=== PATIENT | male | born 1955 | race Asian ===

== ENCOUNTER 2018-05-22 07:57 | Outpatient (CLI) | payer BC ==
--- NOTE | 2018-05-22 09:40 | ULT ---
HEPATIC ULTRASOUND WITH DOPPLER: FINDINGS: The liver demonstrates heterogeneous echotexture. There are two cysts in the left lobe, measuring 3. 5 and 2.5 cm, respectively. A couple of 2 cm cysts are also seen in the right lobe. No intrahepatic ductal dilatation is seen. No definite solid hepatic mass is noted. The spleen is enlarged, measur ing 14.2 cm in length. The patient is post cholecystectomy. The common duct measures 3 mm in diamet er. The visualized portions of the pancreas are unremarkable. No free fluid is seen in the right up per quadrant. There is normal flow and spectral waveforms in the hepatic, portal, and splenic vascul ature. IMPRESSION: 1. Hepatic cysts and heterogeneous echogenicity of the liver, likely due to fatty infiltration. 2. Status post cholecystectomy. POS: [facility]
== END 2018-05-22 07:58 | disposition home or self-care (01) ==
LOC: SCSULT 07:57
PROVIDERS: ATTEND Internal Medicine Gastroenterology
DX: D50.9 Iron deficiency anemia, unspecified (principal); B18.1 Chronic viral hepatitis B without delta-agent; K76.89 Other specified diseases of liver; Z85.038 Personal history of other malignant neoplasm of large intestine; Z90.49 Acquired absence of other specified parts of digestive tract
CPT/HCPCS: 76705

== ENCOUNTER 2018-07-10 13:00 | Outpatient (CLI) | payer BC ==
--- NOTE | 2018-07-10 16:02 | CT ---
CHEST CT WITH CONTRAST ABDOMEN CT WITH CONTRAST PELVIC CT WITH CONTRAST 07/10/18 HISTORY: Colon cancer. Partial colectomy. Chemotherapy x 6 months. Rising CEA. COMPARISON: None. TECHNIQUE: CT chest, abdomen and pelvic CT performed with IV contrast. Enteric contrast is administered. Coronal reformatted images are submitted for interpretation. FINDINGS: CHEST CT: No axillary lymphadenopathy. Right sided Mediport catheter is noted. No mediastinal mass, lymphadenopathy or hematoma. Heart size is normal. No pericardial effusion. The thoracic and abdominal aorta has normal caliber. No periaortic fat stranding. Dependent atelectatic changes in the lung parenchyma. No masses or consolidation. NO pleural effusion or pneumothorax. Trachea and central bronchi are patent. CT ABDOMEN: Multiple hypodensities in the liver. The majority of these hypodensities are too small to characteriz e. Largest hypodensities in the left hepatic lobe have attenuation coefficient of cysts. The largest cyst in the left hepatic lobe measures 2.5 x 3.0 cm. Largest hypodense lesion in the right hepatic lo be also has attenuation coefficient compatible with a cyst and measures 2.3 x 2.3 cm. No enhancing ma sses in the liver. Spleen, pancreas and adrenal glands are appropriate in terms of their enhancement. There is a small h ypodensity adjacent to the posterior margin of the spleen, too small to further characterize and pres ent a small focus of loculated complex perisplenic fluid versus possible sequela of remote splenic in juries with a capsular chronic hematoma. This hypodensity measures 2.4 x 0.8 cm and has an attenuati on coefficient of 26 Hounsfield units. The pancreas, adrenal glands and kidneys have appropriate enha ncement. Bilaterally, no obstructive uropathy. No gastrohepatic, retrocrural or periportal lymphadenopathy. Portal vein is patent. Gallbladder is askew rgically absent. Gastric mucosa, duodenum, and multiple normal caliber small bowel loops. Right hemic olectomy is noted. The anastomosis of the residual colon and small bowel is unremarkable. There is co ntrast and fecal material opacifying a normal caliber colon. No evidence of colonic mass or obstructi on. CT PELVIS: No mass, lymphadenopathy, free air or free fluid. IMPRESSION: 1. No CT evidence of recurrent or residual colonic neoplasm. 2. Hypodensities in the liver which are favored to be cysts. 3. Findings compatible with a right hemicolectomy. POS: [facility]
== END 2018-07-10 13:01 | disposition home or self-care (01) ==
LOC: BICCT 13:00
PROVIDERS: ATTEND Internal Medicine Medical Oncology
DX: C18.9 Malignant neoplasm of colon, unspecified (principal); R93.5 Abnormal findings on diagnostic imaging of other abdominal regions, including retroperitoneum
CPT/HCPCS: 71260; 74177

== ENCOUNTER 2018-07-12 07:39 | Day surgery (SDC) | payer BC ==
[2018-07-11 14:47] VITALS: BMI 25.9
[2018-07-12 08:15] LABS: Prothrombin Time 13.7 SEC (12.0-14.7)
[2018-07-12 08:23] LABS: #Eosinphils 0.1 thou/uL (0.0-0.7); #Lymphocytes 1.7 thou/uL (1.20-3.40); #Monocytes 0.4 thou/uL (0.11-0.59); #Neutrophils 3.7 thou/uL (1.40-6.50); %Basophils 0.3 % (0.0-1.0); %Eosinophils 2.1 % (0.0-10.0); %Lymphocytes 29.1 % (21.0-51.0); %Neutrophils 62.5 % (42.0-75.0); Hemoglobin 15.5 g/dL (14.0-18.0); MDiff Complete? YES; Mean Corpuscular HGB CONC 33.3 g/dL (32.0-36.0); PLT Morphology Comment Appears Decreased; Platelet Count 108 thou/uL (130-400); RBC Distribution Width 20.2 % (11.5-14.5); RBC Morphology Normal; Red Blood Cell (RBC) Count 5.54 mill/uL (4.70-6.10); Reflex for Review?? NO; Small Platelets MODERATE; White Blood Cell (WBC) Count 5.9 thou/uL (4.8-10.8)
[2018-07-12] MEDS ORDERED: Fentanyl 100 MCG/2 ML VIAL ONE (09:14)
[2018-07-12] MEDS ORDERED: Sodium Bicarbonate 2.5 MEQ/5 ML VIAL ONE (09:14)
[2018-07-12] MEDS ORDERED: Midazolam HCl 2 mg/2 ml Vial ONE (09:14)
[2018-07-12] MEDS ORDERED: Acetaminophen 500 MG TAB ONE (10:00)
--- NOTE | 2018-07-12 12:06 | ULT ---
ULTRASOUND GUIDED LIVER BIOPSY: HISTORY: Abnormal liver function tests. COMPARISON: CT of 07/10/2018. FINDINGS: The patient is brought to the ultrasound suite. All questions were answered. The patient's abdomen was prepped and draped in normal sterile fashion. Informed consent was obtaine d. Timeout was performed. One milligram of Versed and 50 mcg of Fentanyl were administered to the patient via the nurse. Four mL of buffered Lidocaine was instilled into the superficial and deep soft tissues for anesthesia . After adequate local anesthesia, a small dermatotomy was made. A 17-gauge introducer was placed i nto the right lobe of the liver through the intercostal space. Using an 18 gauge needle, a total of two 22 mm cores were obtained. The patient tolerated the procedure well without complication. IMPRESSION: Technically successful ultrasound-guided liver biopsy. POS: [facility]
== END 2018-07-12 11:00 | disposition home or self-care (01) ==
LOC: ULT 07:39
PROVIDERS: ATTEND Radiology Diagnostic Radiology
PROC: 0FB13ZX Excision of Right Lobe Liver, Percutaneous Approach, Diagnostic (ICD-10-PCS; principal; 2018-07-12)
DX: B18.1 Chronic viral hepatitis B without delta-agent (principal); K74.0 Hepatic fibrosis; K76.0 Fatty (change of) liver, not elsewhere classified; I10 Essential (primary) hypertension; Z90.49 Acquired absence of other specified parts of digestive tract; Z85.038 Personal history of other malignant neoplasm of large intestine; Z79.899 Other long term (current) drug therapy; Z98.890 Other specified postprocedural states
CPT/HCPCS: 36415; 47000; 76942; 85025; 85610; 85730; 88307; 88313; J2250; J3010

== ENCOUNTER 2018-08-09 09:16 | Outpatient (CLI) | payer BC ==
--- NOTE | 2018-08-09 14:11 | PET ---
NUCLEAR MEDICINE FDG PET CT: (Positron Emission Tomography) DATE: 08/09/18 HISTORY: 62-year-old male with colon cancer, C18.2, restaging. Increasing serum CEA levels. Indeterminate hepa tic lesions on CT of 07/10/18. COMPARISON: No prior PET scans. TECHNIQUE: IV injection F-18 Fluorodeoxyglucose (FDG) dose: 10.4 mCi PET and attenuation-correction CT performed from skull base to proximal thighs. FINDINGS: SUV (standard uptake value) numbers given are maximum SUVs. QCLR used to obtain SUVs. There is a right subclavian implantable vascular access port. The several low attenuation lesions in the liver are not FDG-avid. Their uptake is lower than that of background liver, consistent with cyst s. There are no abnormally hypermetabolic suspicious foci in the neck, chest, or upper abdomen. In the right side of the pelvic cavity, there is an approximately 1 x 1.5 cm triangular soft tissue a ttenuation structure located to the right of the rectosigmoid junction. It is not connected to the ur inary bladder. This is is a significant change compared to the CT of 07/10/18. The SUV is 4.6. In the contralateral left side of the posterior inferior pelvic cavity, just posterior to the left se nathaniel vesical, there is a much smaller 2 x 1 cm soft tissue nodule with SUV of 4.0. This is also a ch brent compared to the previous CT. IMPRESSION: 1. Two hypermetabolic lesions in the pelvic cavity, with the one on the right side larger than the l eft. In the setting of rising CEA levels, these are suspicious for metastatic intrapelvic lymph nodes . Neither of them are amenable to CT guided biopsy. 2. No liver metastasis. CHARLOTTE Dawn POS: [facility]
== END 2018-08-09 09:17 | disposition home or self-care (01) ==
LOC: PET 09:16
PROVIDERS: ATTEND Internal Medicine Medical Oncology
DX: C18.9 Malignant neoplasm of colon, unspecified (principal); K76.9 Liver disease, unspecified; R97.0 Elevated carcinoembryonic antigen [CEA]
CPT/HCPCS: 78815; A9552

== ENCOUNTER 2018-12-10 09:43 | Outpatient (CLI) | payer BC ==
--- NOTE | 2018-12-10 17:20 | PET ---
PET CT: 12/10/18 HISTORY: 63-year-old male with colon cancer. Exam requested for restaging. Last chemotherapy was two weeks ago . COMPARISON: 08/09/18. TECHNIQUE: PET scan with CT attenuation correction was performed from the base of the brain to the proximal thig hs following intravenous administration of 12.7 millicuries of 15-fluorodeoxyglucose in the left ante cubital fossa. FINDINGS: No yanick hypermetabolism is seen in the neck, chest, axillae, abdomen, pelvis or inguinal regions. No hypermetabolic pulmonary nodules, liver or adrenal lesions are identified. Increased uptake in the axial skeleton is likely due to bone marrow stimulation secondary to medicati ons. No focal area of increased osseous lesions are seen. There is physiologic activity in the GI and tracts and the visualized portions of the brain. The CT scan used for attenuation correction demonstrates no evidence of pleural effusions or ascites. Cysts in the liver are again seen. IMPRESSION: No evidence of metastatic disease. POS: [facility]
== END 2018-12-10 09:44 | disposition home or self-care (01) ==
LOC: PET 09:43
PROVIDERS: ATTEND Internal Medicine Medical Oncology
DX: C18.2 Malignant neoplasm of ascending colon (principal)
CPT/HCPCS: 36415; 78815; 80053; 82248; 82378; 83615; 84100; 84550; A9552